=== PATIENT | male | born 1980 | race Caucasian/White ===

== ENCOUNTER 2022-04-16 19:20 | Emergency (ER) | payer BC ==
[~2022-04-16] VITALS: Ht 185.4 cm; Wt 79.5 kg
[2022-04-16 20:02] LABS: HEMATOCRIT 45.1 % (42.0-52.0); HEMOGLOBIN 15.2 g/dL (13.5-18.0); MEAN CELL VOLUME 96 fl (78-100); MEAN CORPUSCULAR HEMOGLOBIN 32 pg (27-31); MEAN CORPUSCULAR HGB CONC 34 g/dL (33-37); MEAN PLATELET VOLUME 10.8 fl (7.4-10.4); PLATELET COUNT 186 K/mm3 (130-400); RED BLOOD COUNT 4.69 M/mm3 (4.20-5.60); WHITE BLOOD COUNT 14.6 K/mm3 (4.8-10.8)
[2022-04-16 20:08] LABS: POTASSIUM 4.4 mmol/L (3.5-5.1)
[2022-04-16 20:09] LABS: CALCIUM 9.6 mg/dL (8.3-10.5)
[2022-04-16 20:20] LABS: MONOCYTE 8 % (3-10)
[2022-04-16 20:21] LABS: LYMPHOCYTE 6 % (20-51); NEUTROPHILS 85 % (42-75)
[2022-04-17 01:17] VITALS: BP 96/70
[2022-04-17 10:06] LABS: URINE COLOR YELLOW; URINE WBC 0 /hpf (0-3)
[2022-04-17 10:07] LABS: PH-URINE 6.5 (5.0 - 8.0); URINE APPEARANCE CLEAR; URINE BILIRUBIN NEGATIVE (NEGATIVE); URINE BLOOD NEGATIVE (NEGATIVE); URINE GLUCOSE NEGATIVE (NEGATIVE); URINE KETONE 1+ (NEGATIVE); URINE LEUKOCYTE ESTERASE NEGATIVE (NEGATIVE); URINE NITRATE NEGATIVE (NEGATIVE); URINE PROTEIN(semi-quant) NEGATIVE (NEGATIVE); URINE UROBILINOGEN NORMAL (NORMAL)
== END 2022-04-17 01:17 | disposition short-term general hospital (02) ==
LOC: ED 19:20
PROVIDERS: Family Medicine
DX: M70.22 Olecranon bursitis, left elbow (principal)
CPT/HCPCS: J0696; J7030

== ENCOUNTER → 2022-04-25 | Outpatient (CLI) | payer BC ==
[2022-04-25 18:04] LABS: HEMATOCRIT 45.1 % (42.0-52.0); HEMOGLOBIN 14.9 g/dL (13.5-18.0); RED BLOOD COUNT 4.67 M/mm3 (4.20-5.60); RED CELL DISTRIBUTION WIDTH 12.9 % (11.5-14.5); WHITE BLOOD COUNT 10.2 K/mm3 (4.8-10.8)
[2022-04-25 18:32] LABS: ALBUMIN 3.9 g/dL (3.5-5.0); POTASSIUM 4.4 mmol/L (3.5-5.1)
[2022-04-25 18:33] LABS: CALCIUM 9.4 mg/dL (8.3-10.5)
[2022-04-25 18:36] LABS: TOTAL BILIRUBIN 0.3 mg/dL (0.2-1.2)
== END ==
LOC: LAB 17:01
PROVIDERS: Family Medicine
DX: D64.9 Anemia, unspecified (principal)

== ENCOUNTER → 2022-04-28 | Outpatient (RCR) | payer BC ==
[2022-04-22 17:03] VITALS: BP 106/86
[2022-04-23 17:08] VITALS: BP 118/93
[2022-04-24 19:50] VITALS: BP 115/73
[2022-04-25 17:41] VITALS: BP 94/61
--- NOTE | 2022-04-26 15:04 | NUR ---
Recieved called from Zara at Dr. Rutherford's office. Zara states that Dr. Rutherford will not be ordering the f/u cultures.
[2022-04-26 17:11] VITALS: BP 105/73
[2022-04-27 17:11] VITALS: BP 99/67
[~2022-04-28] VITALS: Ht 185.4 cm; Wt 79.5 kg
[2022-04-28 17:01] VITALS: BP 100/69
== END | disposition home or self-care (01) ==
LOC: AMSURD
DX: Z51.81 Encounter for therapeutic drug level monitoring (principal)
CPT/HCPCS: J0696

== ENCOUNTER → 2022-05-03 | Outpatient (CLI) | payer BC ==
[2022-05-03 18:27] LABS: HEMATOCRIT 40.9 % (42.0-52.0); HEMOGLOBIN 13.5 g/dL (13.5-18.0); MEAN PLATELET VOLUME 10.1 fl (7.4-10.4); RED BLOOD COUNT 4.29 M/mm3 (4.20-5.60); RED CELL DISTRIBUTION WIDTH 12.4 % (11.5-14.5); WHITE BLOOD COUNT 7.7 K/mm3 (4.8-10.8)
[2022-05-03 18:33] LABS: ALBUMIN 3.9 g/dL (3.5-5.0); POTASSIUM 3.9 mmol/L (3.5-5.1)
[2022-05-03 18:34] LABS: CALCIUM 9.1 mg/dL (8.3-10.5)
[2022-05-03 18:36] LABS: TOTAL PROTEIN 6.9 g/dL (6.4-8.3)
[2022-05-03 18:37] LABS: TOTAL BILIRUBIN 0.4 mg/dL (0.2-1.2)
== END ==
LOC: LAB 17:04
PROVIDERS: Physician Assistant
DX: Z51.81 Encounter for therapeutic drug level monitoring (principal)

== ENCOUNTER 2022-05-08 19:31 | Outpatient (RCR) | payer BC ==
[2022-04-29 18:03] VITALS: BP 107/80
[2022-04-30 17:21] VITALS: BP 114/70
[2022-05-02 17:45] VITALS: BP 115/82
[2022-05-03 17:45] VITALS: BP 114/73
[2022-05-04 17:21] VITALS: BP 157/51
[2022-05-05 17:31] VITALS: BP 131/63
[2022-05-06 17:25] VITALS: BP 127/68
[2022-05-07 17:08] VITALS: BP 119/84
[~2022-05-08] VITALS: Ht 185.4 cm; Wt 79.5 kg
[2022-05-08 19:35] VITALS: BP 102/8
== END 2022-05-29 | disposition home or self-care (01) ==
LOC: AMSURD
DX: Z51.81 Encounter for therapeutic drug level monitoring (principal)
CPT/HCPCS: J0696